=== PATIENT | female | born 1985 | race Caucasian/White ===

== ENCOUNTER 2019-03-15 12:04 | Outpatient (CLI) | payer MEDICAID ==
[~2019-03-15] VITALS: Ht 154.9 cm; Wt 81.6 kg
[~2019-03-15 12:04] MED LIST: PREN1TAB71 PO
[2019-03-15 13:16] VITALS: BP 120/70; PULSE 80; RESP 18
[2019-03-15 13:17] VITALS: Ht 154.9 cm; Wt 81.6 kg
== END 2019-03-15 13:30 | disposition home or self-care (01) ==
LOC: OBT 12:04 → L-D 12:06 → OBT 13:30
PROVIDERS: ATTEND Obstetrics & Gynecology
DX: O99.112 Other diseases of the blood and blood-forming organs and certain disorders involving the immune mechanism complicating pregnancy, second trimester (principal); D69.6 Thrombocytopenia, unspecified; Z3A.24 24 weeks gestation of pregnancy
CPT/HCPCS: 85025; Z7500; G0463